=== PATIENT | male | born 1965 | race Caucasian/White ===

== ENCOUNTER 2023-02-01 18:41 | Emergency (ER) | payer BC, OTHER ==
[2023-02-01] MEDS ORDERED: Lidocaine 1% PF 5 ML VIAL ONE (18:53)
[2023-02-01] MEDS ORDERED: Boostrix 0.5 ML (Tdap) VIAL (>/=7 yrs of age) ONE (19:52)
== END 2023-02-01 19:51 | disposition home or self-care (01) ==
LOC: BURERS 18:41
DX: S91.311A Laceration without foreign body, right foot, initial encounter (principal); Z23 Encounter for immunization; W01.198A Fall on same level from slipping, tripping and stumbling with subsequent striking against other object, initial encounter
CPT/HCPCS: 12002; 90471; 90715

== ENCOUNTER 2025-09-27 10:38 | Emergency (ER) | payer OTHER, BC ==
[2025-09-27] MEDS ORDERED: Dexamethasone 10 MG/ML VIAL ONE (11:17)
== END 2025-09-27 11:56 | disposition home or self-care (01) ==
LOC: BURERS 10:38
DX: M75.81 Other shoulder lesions, right shoulder (principal)
CPT/HCPCS: 96372; 99283; J1100